=== PATIENT | female | born 1975 | race Caucasian/White ===

== ENCOUNTER 2017-01-13 19:43 | Emergency (ER) | payer OTHER ==
[~2017-01-13 19:43] MED LIST: ADVAIR 250-501 EAC1 IH; ALBUTEROL17 GM INH; ALBUTEROL17 GM PO; ALBUTEROL20 ml INH; CELEXA10 M1 PO; CHLORTHALIDONE25 M1 PO; CHLORTHALIDONE25 MG PO; DICLOFENAC PO; MONTELUKAST SOD10 MG PO; PREDNISONE PO; PREDNISONE10 MG/DOSE; SINGULAIR PO; SYMBICORT INH; SYMBICORT80 INH; TOPROL XL PO; UNKNOWN BP MED; VIBRAMYCIN50 MG PO; ZESTRIL10 M2 PO; ZYRTEC10 M2 PO
== END 2017-01-13 21:05 | disposition home or self-care (01) ==
LOC: CED 19:43
DX: Z53.21 Procedure and treatment not carried out due to patient leaving prior to being seen by health care provider (principal)

== ENCOUNTER → 2017-03-12 | Outpatient (CLI) | payer OTHER ==
--- NOTE | ~2017-03-12 | MY29 ---
[facility] A Service of [facility] RADIOLOGY TEXT RESULTS PATIENT: COMPA CHANDRA LOCATION: [facility] : 77 UNIT #: [id number] AGE: [address]: Gaby Padilla MD SEX: F ORDER DR: [id number] [facility] [address] [place], [place] [address] [id number] O MR#: [id number] Acc #: [id number] NAME: COMPA CHANDRA : 1975 SEX: F STUDY DATE/TIME: 03/12/2017 11:57 UNIT: [facility] ROOM: STUDY DESCRIPTION: MY ALFREDITO SCREENING W/ CAD BILAT Attending Physician: Gaby Padilla M.D. Referring Physician: Gaby Padilla M.D. Ordering Physician: Gaby Padilla M.D. Primary Care Physician: Gaby Padilla M.D. MEDICAL IMAGING REPORT This report is preliminary unless electronic signature is present EXAM Digital screening mammogram, 03/12/2017 HISTORY 41-year-old woman baseline mammogram. Positive family history, cousin in her 30s. FINDINGS Digital imaging of each breast was completed utilizing screening protocol. Review includes FDA-approved CAD device. Breast parenchyma is fatty replaced. Intramammary lymph node or nodes imaged left breast. I see no suspicious mass characteristics. There are no suspicious microcalcifications and no architectural deformity. IMPRESSION Negative baseline mammogram. Annual screening recommended. Patients over the age of 40 are entered into a reminder system with target due date for the next mammogram. A result letter will also be sent to the patient. BIRADS: 1 Negative Dictated by... Francois Boss M.D. THIS IS AN ELECTRONICALLY VERIFIED REPORT Francois Boss M.D. at 03/12/2017 3:32 PM Hemant TD: 03/12/2017 15:01 JOB #: [id number] [facility] A Service of [facility] RADIOLOGY TEXT RESULTS PATIENT: COMPA CHANDRA LOCATION: [facility] [place] #: [id number] : 77 UNIT #: [id number] AGE: [address]: Gaby Padilla MD SEX: F ORDER DR: MEDICAL IMAGING REPORT Page 1 of 1 COPY
== END | disposition home or self-care (01) ==
LOC: CWCC 11:15
DX: Z12.31 Encounter for screening mammogram for malignant neoplasm of breast (principal); Z80.3 Family history of malignant neoplasm of breast
CPT/HCPCS: G0202